=== PATIENT | male | born 1940 | race Hispanic/Latino ===

== ENCOUNTER 2021-01-27 18:25 | Emergency (ER) | payer MEDICAID ==
[2021-01-27 19:32] VITALS: BP 121/65
--- NOTE | 2021-01-27 20:54 | XRay Report ---
CHEST 2 VIEWS INDICATION / CLINICAL INFORMATION: sob. Patient currently on dialysis. COMPARISON: None available. FINDINGS: SUPPORT DEVICES: None. HEART / MEDIASTINUM: Cardiac silhouette is mildly enlarged. LUNGS / PLEURA: There is mild interstitial pulmonary edema. Bilateral pleural effusions are present. Right pleural effusion is small to moderate in size. The left pleural effusion is small in size. No p neumothorax. ADDITIONAL FINDINGS: No significant additional findings. IMPRESSION: 1. Mild interstitial pulmonary edema with bilateral pleural effusions. Signer Name: Patt Gonzalez MD Signed: 01/27/2021 8:50 PM Workstation Name: [id number]
[2021-01-27 21:13] LABS: Basophils # (Auto) 0.1 K/mm3 (0.0-0.1); Eosinophils # (Auto) 0.2 K/mm3 (0.0-0.4); Eosinophils % (Auto) 2.8 % (0.0-4.3); Hematocrit 43.7 % (35.5-45.6); Hemoglobin 14.5 gm/dl (11.8-15.2); Lymphocytes # (Auto) 1.8 K/mm3 (1.2-5.4); Lymphocytes % (Auto) 24.7 % (13.4-35.0); Mean Corpuscular HGB Conc 33 % (32-34); Mean Corpuscular Volume 103 fl (84-94); Monocytes # (Auto) 0.9 K/mm3 (0.0-0.8); Platelet Count 192 K/mm3 (140-440); Red Blood Count 4.26 M/mm3 (3.65-5.03)
[2021-01-27 21:19] LABS: Calcium 9.7 mg/dL (8.4-10.2)
--- NOTE | 2021-01-28 11:29 | Electrocardiograph Report ---
[facility] Test Date: 2021-01-27 Test Time: 20:21:23 Pat Name: ULYSSES CHUNG Department: Room: Gender: M Social Welfare Administrator: AMILCAR : 1940 Requested By: ED DOC Order Number: [id number] Reading MD: Froy Sanches Measurements Intervals Irma Rate: 54 P: W[place]: QRS: -47 QRSD: 95 T: 113 QT: 456 QTc: 433 Interpretive Statements Atrial fibrillation Inferior infarct, old Anterior infarct, old Nonspecific T abnormalities, lateral leads No previous ECG available for comparison Electronically Signed On 01-28-2021 11:29:06 EDT by Froy Sanches
== END 2021-01-27 21:00 | disposition left against medical advice (07) ==
LOC: ED 18:25
DX: R79.9 Abnormal finding of blood chemistry, unspecified (principal); Z53.21 Procedure and treatment not carried out due to patient leaving prior to being seen by health care provider
CPT/HCPCS: 36415; 71046; 80048; 85025; 93005